=== PATIENT | male | born 1945 | race Caucasian/White ===

== ENCOUNTER 2018-04-11 08:40 | Outpatient (CLI) | payer MEDICARE, SELFPAY ==
[2018-04-11 11:33] LABS: Abs Immature Grans 0.02 k/cumm (0.0-0.09); Absolute Basophil Count 0.04 k/cumm (0.0-0.2); Absolute Eosinophil Count 0.24 k/cumm (0.0-0.7); Absolute Lymphocyte Count 0.81 k/cumm (1.2-3.4); Absolute Monocyte Count 1.02 k/cumm (0.11-0.7); Absolute Neutrophil Count 8.07 k/cumm (1.2-6.7); Basophils % 0.4; Eosinophils % 2.4; HCT 42.8 % (40.0-50.0); Immature Grans % 0.2; Lymphocytes % 7.9; Mean Corpuscular Hemoglobin 33.9 pg (27.0-33.0); Mean Corpuscular Volume 96.8 fL (80-95); Mean Platelet Volume 10.2 fL (8.0-11.0); Neutrophils % 79.1; Platelet Count 217 x1000/uL (130-400); RBC 4.42 m/cumm (4.50-6.00); RBC Distribution Width 12.6 % (11.8-14.1)
[2018-04-11 11:57] LABS: ALT 14 U/L (12-78); AST 18 U/L (15-37); Albumin 3.7 g/dL (3.4-5.0); Alkaline Phosphatase 84 U/L (46-116); BUN 16 mg/dL (7-18); Bilirubin, Total 1.2 mg/dL (0.2-1.0); CREATININE 0.95 mg/dL (0.70-1.30); Calcium 9.1 mg/dL (8.5-10.1); Chloride 102 mmol/L (98-107); Glucose 96 mg/dL (70-100); Potassium 3.8 mmol/L (3.5-5.1); Sodium 137 mmol/L (136-145); Total Protein 7.8 g/dL (6.4-8.2)
[2018-04-11 12:28] LABS: C-Reactive Protein 4.87 mg/dL (0.0-0.3)
[2018-04-13 12:39] LABS: Angiotensin Converting Enzyme 20 U/L (8 - 53)
== END 2018-04-11 09:00 ==
PROVIDERS: PCP Emergency Medicine; Visit Provider Emergency Medicine
DX: E66.9 Obesity, unspecified (principal); J18.9 Pneumonia, unspecified organism; R59.0 Localized enlarged lymph nodes; R05 Cough
CPT/HCPCS: 36415; 80053; 82164; 85025; 86140

== ENCOUNTER 2018-04-28 00:35 | Outpatient (CLI) | payer MEDICARE, SELFPAY ==
[2018-04-28] MEDS: Gadoterate meglumine 20 ML VIAL 14 ML IVP (14:59)
--- NOTE | 2018-04-28 15:16 | DI.MRI_ITS ---
SYMPTOM/DIAGNOSIS: CERVICAL ADENOPATHY, R59.0, RT UPPER LUNG NODULE, R91.1, EVALUATE FOR METASTATIC DISEASE BRAIN MRI: There are no prior comparison exams. T 2 sagittal, T 1, T 2, FLAIR, diffusion and gradient echo axial and post Gadolinium T 1 axial and coronal sequences were performed. The exam is mildly limited by patient motion. No intracranial hemorrhage, mass or infarct is seen. There are no abnormal enhancing lesions. There are patchy areas of high signal in the white matter consistent with sequela of micro vascular disease. The ventricles are normal in size. There is mild atrophy. The orbits and sinuses are unremarkable. Vascular flow voids appear intact. There is a small amount of fluid in the mastoid air cells bilaterally. IMPRESSION: Atrophy and white matter changes of small vessel disease. No evidence of metastatic disease.
== END 2018-04-28 00:55 ==
PROVIDERS: PCP Emergency Medicine; Visit Provider Thoracic Surgery (Cardiothoracic Vascular Surgery)
DX: R59.0 Localized enlarged lymph nodes (principal); R91.1 Solitary pulmonary nodule; R90.82 White matter disease, unspecified; G61.1 Serum neuropathy
CPT/HCPCS: 70553

== ENCOUNTER 2018-05-23 14:45 | Outpatient (CLI) | payer MEDICARE, SELFPAY ==
[2018-05-23 15:30] LABS: Abs Immature Grans 0.01 k/cumm (0.0-0.09); Absolute Basophil Count 0.01 k/cumm (0.0-0.2); Absolute Lymphocyte Count 0.25 k/cumm (1.2-3.4); Absolute Monocyte Count 0.43 k/cumm (0.11-0.7); Absolute Neutrophil Count 3.36 k/cumm (1.2-6.7); Basophils % 0.2; HCT 36.3 % (40.0-50.0); HGB 12.9 g/dL (13.5-17.5); Immature Grans % 0.2; Lymphocytes % 6.2; Mean Corp. HGB Concentration 35.5 g/dL (32.0-36.0); Mean Corpuscular Hemoglobin 33.5 pg (27.0-33.0); Mean Corpuscular Volume 94.3 fL (80-95); Monocytes % 10.6; Neutrophils % 82.8; RBC 3.85 m/cumm (4.50-6.00); RBC Distribution Width 11.7 % (11.8-14.1); White Blood Cell Count 4.06 k/cumm (4.4-10.8)
[2018-05-23 15:53] LABS: Platelet Count 66 x1000/uL (130-400)
[2018-05-23 15:54] LABS: Diff Comment PLT Morph Reviewed; RBC Morphology Normal
[2018-05-23 16:02] LABS: ALT 52 U/L (12-78); AST 51 U/L (15-37); Albumin 2.8 g/dL (3.4-5.0); Alkaline Phosphatase 159 U/L (46-116); Anion Gap 9.6 mmol/L (3-11); BUN 20 mg/dL (7-18); Bilirubin, Total 1.8 mg/dL (0.2-1.0); CO2 25.4 mmol/L (21.0-32.0); CREATININE 0.92 mg/dL (0.70-1.30); Calcium 8.3 mg/dL (8.5-10.1); Chloride 97 mmol/L (98-107); FREE T4 1.25 ng/dL (0.76-1.46); Glucose 108 mg/dL (70-100); Potassium 3.7 mmol/L (3.5-5.1); Sodium 132 mmol/L (136-145); TSH 3.49 uIU/mL (0.358-3.74); Total Protein 7.5 g/dL (6.4-8.2)
== END 2018-05-23 15:05 ==
PROVIDERS: PCP Emergency Medicine; Visit Provider Internal Medicine Hospice and Palliative Medicine
DX: C34.91 Malignant neoplasm of unspecified part of right bronchus or lung (principal); Z79.899 Other long term (current) drug therapy
CPT/HCPCS: 36415; 80053; 84439; 84443; 85025

== ENCOUNTER 2018-05-25 17:23 | Emergency (ER) | payer MEDICARE, SELFPAY ==
[2018-05-25 17:32] VITALS: BP 126/56; PULSE 86; RESP 20; TEMP 37; O2SAT 95
--- NOTE | 2018-05-25 17:51 | W.ED.GENAD ---
Discharge Plan Disposition Patient Disposition: HOME Condition: Improving Discharge Details Chief Complaint: Epistaxis Clinical Impression: Acute anterior epistaxis Primary Care Provider: Dakota Griffith ED Provider: Parth Muse Home Meds and New Rx's Prescriptions: New amoxicillin-pot clavulanate 875-125 mg tablet 1 tab PO BID 4 Days Qty: 8 RF: 0 Continued naproxen sodium [Aleve] 220 mg capsule 220 mg PO BID PRNRF: 0 ondansetron HCl 8 mg tablet 8 mg PO TID PRNRF: 0 dexamethasone 4 mg tablet 4 mg PO Q12H RF: 0 prochlorperazine maleate 10 mg tablet 10 mg PO QID RF: 0 folic acid 1 mg tablet 1 mg PO DAILY RF: 0 lorazepam 0.5 mg tablet 0.5 mg PO HS Qty: 60 RF: 3 PreviDent 5000 Dry Mouth 1.1 % gel 1 applic DT BID RF: 0 aspirin 81 MG tablet,delayed release (DR/EC) 81 mg PO DAILY RF: 0 cholecalciferol (vitamin D3) 1,000 UNIT capsule 1,000 unit PO DAILY RF: 0 vitamin D84-rbagy acid 1 EACH tablet 1 ea PO DAILY RF: 0 omeprazole 20 MG capsule,delayed release(DR/EC) 20 mg PO DAILY Qty: 90 RF: 4 morphine 5 mg/mL Solution 5 mg SUBCUT Q12H PRN RF: 0 Discharge Instructions Additional Instructions: We will place a referral to otolaryngology clinic to get you an appointment for removal of the nasal tampon. Please take antibiotics as prescribed. Please follow-up in the cancer center on Tuesday as planned. Please follow-up with Dr. Griffith tomorrow in clinic as planned. Continue all regular medications. Return to the emergency department for any acute concerns Medical Decision Making 72-year-old male referred by the cancer center after he developed left anterior epistaxis at home that was refractive to pressure and tissue. He is undergone 1 cycle of chemotherapy for metastatic adenocarcinoma of the right lung. Being treated with carboplatin, pemetrexel and keytruda. He most recent blood draw revealed platelets of 66. He has dry it would heat in his home and has a history of 1-2 nosebleeds typically, but they have been more frequent over the past few weeks. He states that he is otherwise been well. He has noted a dry cough which sometimes provokes the nosebleeds. Given the recently low platelets (66 @ 05/23/18) and his age as well as dry wood heat in the home, I elected to pack with a nasal tampon. Which the patient tolerated well. Labs today: wbc 2.9, hct 34.9, platelets 56. Case discussed with on-call Oncology at [facility] [place], Dr Borrero. She agrees with plan of care including prophylactic antibiotic and states that oncology would prefer to the nasal tampon be removed by otolaryngology. We will arrange a follow-up Lab Data Lab results reviewed: Yes I reviewed the patient's lab results. Laboratory Results - last 24 hr 05/25/18 05/25/18 17:57 17:57 WBC 2.98 L RBC 3.74 L Hgb 12.6 L Hct 34.9 L MCV 93.3 MCH 33.7 H MCHC 36.1 H RDW 11.7 L Plt Count 56 L MPV 10.4 Immature Gran % 0.3 Neutrophils % 62.8 Lymphocytes % 16.4 Monocytes % 20.5 Eosinophils % 0.0 Basophils % 0.0 Absolute Neutrophils 1.87 Absolute Lymphocytes 0.49 L Absolute Monocytes 0.61 Absolute Eosinophils 0.00 Absolute Basophils 0.00 Differential Comment Plt morph reviewed RBC Morphology Normal Sodium 135 L Potassium 3.8 Chloride 98 Carbon Dioxide 25.4 Anion Gap 11.6 H BUN 19 H Creatinine 0.89 Estimated GFR/1.73 m2 >= 60.00 Glucose 98 Calcium 8.4 L HPI General Mode of arrival: ambulatory. Date/Time Provider Initiated Documentation: 05/25/18 17:28. Limitations to Documentation: no limitations. Information obtained by: patient and family. History of Present Illness 72 year old M presents to the emergency department with the chief complaint of Left epistaxis, described as moderate, Quality is described as constant, and is localized to the face and left. Patient reports no radiation. Patient started experiencing this hour(s) and it has been constant. other things that improve symptom(s), (Pressure) No exacerbating factors reported . Patient notes no other symptoms.; denies chest pain, malaise, shortness of breath, syncope and weakness. Patient did receive the following treatments prior to arrival, other (Tissue to nostril) Related Data Home Medications Medication Instructions Recorded Confirmed aspirin 81 mg PO DAILY tab-cap 04/06/13 05/25/18 cholecalciferol (vitamin D3) 1,000 unit PO DAILY 04/06/13 05/25/18 vitamin P51-tdcgs acid 1 ea PO DAILY 06/30/17 05/12/18 omeprazole 20 mg PO DAILY #90 tab-cap 12/09/17 05/25/18 sodium fluoride 1.1 % dental gel 1 applic DT BID ml 04/11/18 05/12/18 naproxen sodium 220 mg capsule 220 mg PO BID PRN 05/05/18 05/12/18 dexamethasone 4 mg tablet 4 mg PO Q12H 05/12/18 05/25/18 folic acid 1 mg tablet 1 mg PO DAILY 05/12/18 05/25/18 lorazepam 0.5 mg tablet 0.5 mg PO HS #60 tab 05/12/18 05/12/18 ondansetron HCl 8 mg tablet 8 mg PO TID PRN 05/12/18 05/12/18 prochlorperazine maleate 10 mg 10 mg PO QID 05/12/18 05/12/18 tablet amoxicillin-pot clavulanate 1 tab PO BID 4 Days #8 tab 05/25/18 morphine 5 mg SUBCUT Q12H PRN 05/25/18 05/25/18 Previous Rx's Medication Instructions Recorded omeprazole 20 mg PO DAILY #90 tab-cap 12/09/17 lorazepam 0.5 mg tablet 0.5 mg PO HS #60 tab 05/12/18 amoxicillin-pot clavulanate 1 tab PO BID 4 Days #8 tab 05/25/18 Allergies Allergy/AdvReac Type Severity Reaction Status Date / Time No Known Allergies Allergy Verified 05/25/18 17:38 General Stated Complaint: Epistaxis BRENDA: 3 Review of Systems Review of Systems 8 systems reviewed and otherwise - [facility] Surgical History Colonoscopy - MAC EGD - MAC (03/09/11) Total replacement of hip Family History Mother Stroke Father Stroke Sister No problems noted. Brother No problems noted. Grandfather Heart disease Grandfather Stroke Grandmother Stroke Grandmother No problems noted. Brother No problems noted. Social History Smoking/Tobacco Use Status: Former Tobacco Use Exam Narrative Exam Narrative: GEN: awake, alert, oriented 3. Pleasant, well groomed, interactive. HEAD: Normocephalic, atraumatic ENT: Mucous membranes moist, oropharynx with dried blood on posterior pharynx. The left anterior naris is with oozing of blood EYES: PERRL, EOMI NECK: Full ROM, no FRANCIE, no menigismus CHEST/RESP: Nontender, clear to auscultation bilateral, no wheeze/rhonchi/rales CARDIOVASCULAR: RRR, no murmur, rub loly. 2+ Rad pulse bilateral ABDOMEN: Soft, nontender, no mass. +Bowel sounds EXT: Full ROM, no edema, no rash Neuro: Grossly normal neurologic exam, conversant, interactive. Psych: Speech fluent, thoughts congruent, affect normal Course Vital Signs Temperature 37.0 C 05/25/18 17:32 Pulse 86 05/25/18 17:32 Respiratory Rate 20 05/25/18 17:32 Blood Pressure 126/56 L 05/25/18 17:32 Pulse Oximetry 95 05/25/18 17:32 Temperature 37.0 C 05/25/18 17:32 Temperature Source Skin 05/25/18 17:32 Pulse 86 05/25/18 17:32 Respiratory Rate 20 05/25/18 17:32 Respiratory Effort 05/25/18 17:40 Blood Pressure 126/56 L 05/25/18 17:32 Pulse Oximetry 95 05/25/18 17:32 Oxygen Delivery Method Room Air 05/25/18 17:32 Oxygen Flow Rate 0 05/25/18 17:32 Pain Level 0 05/25/18 17:32 Procedures Epistaxis Control Time Out Performed: Yes Nostril: left Nose Prepped With: lidocaine Direct Inspection: yes Cautery Used: none Device Inserted: nasal tampon
--- NOTE | 2018-05-25 17:54 | ED.GENADUL_ITS ---
Discharge Plan Disposition Patient Disposition: HOME Condition: Improving Discharge Details Chief Complaint: Epistaxis Clinical Impression: Acute anterior epistaxis Primary Care Provider: Dakota Griffith ED Provider: Parth Muse Home Meds and New Rx's Prescriptions: New amoxicillin-pot clavulanate 875-125 mg tablet 1 tab PO BID 4 Days Qty: 8 RF: 0 Continued naproxen sodium [Aleve] 220 mg capsule 220 mg PO BID PRNRF: 0 ondansetron HCl 8 mg tablet 8 mg PO TID PRNRF: 0 dexamethasone 4 mg tablet 4 mg PO Q12H RF: 0 prochlorperazine maleate 10 mg tablet 10 mg PO QID RF: 0 folic acid 1 mg tablet 1 mg PO DAILY RF: 0 lorazepam 0.5 mg tablet 0.5 mg PO HS Qty: 60 RF: 3 PreviDent 5000 Dry Mouth 1.1 % gel 1 applic DT BID RF: 0 aspirin 81 MG tablet,delayed release (DR/EC) 81 mg PO DAILY RF: 0 cholecalciferol (vitamin D3) 1,000 UNIT capsule 1,000 unit PO DAILY RF: 0 vitamin T38-wwtdv acid 1 EACH tablet 1 ea PO DAILY RF: 0 omeprazole 20 MG capsule,delayed release(DR/EC) 20 mg PO DAILY Qty: 90 RF: 4 morphine 5 mg/mL Solution 5 mg SUBCUT Q12H PRN RF: 0 Discharge Instructions Additional Instructions: We will place a referral to otolaryngology clinic to get you an appointment for removal of the nasal tampon. Please take antibiotics as prescribed. Please follow-up in the cancer center on Tuesday as planned. Please follow-up with Dr. Griffith tomorrow in clinic as planned. Continue all regular medications. Return to the emergency department for any acute concerns Medical Decision Making 72-year-old male referred by the cancer center after he developed left anterior epistaxis at home that was refractive to pressure and tissue. He is undergone 1 cycle of chemotherapy for metastatic adenocarcinoma of the right lung. Being treated with carboplatin, pemetrexel and keytruda. He most recent blood draw revealed platelets of 66. He has dry it would heat in his home and has a history of 1-2 nosebleeds typically, but they have been more frequent over the past few weeks. He states that he is otherwise been well. He has noted a dry cough which sometimes provokes the nosebleeds. Given the recently low platelets (66 @ 05/23/18) and his age as well as dry wood heat in the home, I elected to pack with a nasal tampon. Which the patient tolerated well. Labs today: wbc 2.9, hct 34.9, platelets 56. Case discussed with on-call Oncology at [facility] [place], Dr Borrero. She agrees with plan of care including prophylactic antibiotic and states that oncology would prefer to the nasal tampon be removed by otolaryngology. We will arrange a follow-up Lab Data Lab results reviewed: Yes I reviewed the patient's lab results. Laboratory Results - last 24 hr 05/25/18 05/25/18 17:57 17:57 WBC 2.98 L RBC 3.74 L Hgb 12.6 L Hct 34.9 L MCV 93.3 MCH 33.7 H MCHC 36.1 H RDW 11.7 L Plt Count 56 L MPV 10.4 Immature Gran % 0.3 Neutrophils % 62.8 Lymphocytes % 16.4 Monocytes % 20.5 Eosinophils % 0.0 Basophils % 0.0 Absolute Neutrophils 1.87 Absolute Lymphocytes 0.49 L Absolute Monocytes 0.61 Absolute Eosinophils 0.00 Absolute Basophils 0.00 Differential Comment Plt morph reviewed RBC Morphology Normal Sodium 135 L Potassium 3.8 Chloride 98 Carbon Dioxide 25.4 Anion Gap 11.6 H BUN 19 H Creatinine 0.89 Estimated GFR/1.73 m2 >= 60.00 Glucose 98 Calcium 8.4 L HPI General Mode of arrival: ambulatory . Date/Time Provider Initiated Documentation: 05/25/18 17:28 . Limitations to Documentation: no limitations . Information obtained by: patient and family . History of Present Illness 72 year old M presents to the emergency department with the chief complaint of Left epistaxis, described as moderate, Quality is described as constant, and is localized to the face and left. Patient reports no radiation. Patient started experiencing this hour(s) and it has been constant. other things that improve symptom(s), (Pressure) No exacerbating factors reported . Patient notes no other symptoms.; denies chest pain, malaise, shortness of breath, syncope and weakness. Patient did receive the following treatments prior to arrival, other (Tissue to nostril) Related Data Home Medications Medication Instructions Recorded Confirmed aspirin 81 mg PO DAILY tab-cap 04/06/13 05/25/18 cholecalciferol (vitamin D3) 1,000 unit PO DAILY 04/06/13 05/25/18 vitamin X46-kwtgj acid 1 ea PO DAILY 06/30/17 05/12/18 omeprazole 20 mg PO DAILY #90 tab-cap 12/09/17 05/25/18 sodium fluoride 1.1 % dental gel 1 applic DT BID ml 04/11/18 05/12/18 naproxen sodium 220 mg capsule 220 mg PO BID PRN 05/05/18 05/12/18 dexamethasone 4 mg tablet 4 mg PO Q12H 05/12/18 05/25/18 folic acid 1 mg tablet 1 mg PO DAILY 05/12/18 05/25/18 lorazepam 0.5 mg tablet 0.5 mg PO HS #60 tab 05/12/18 05/12/18 ondansetron HCl 8 mg tablet 8 mg PO TID PRN 05/12/18 05/12/18 prochlorperazine maleate 10 mg 10 mg PO QID 05/12/18 05/12/18 tablet amoxicillin-pot clavulanate 1 tab PO BID 4 Days #8 tab 05/25/18 morphine 5 mg SUBCUT Q12H PRN 05/25/18 05/25/18 Previous Rx's Medication Instructions Recorded omeprazole 20 mg PO DAILY #90 tab-cap 12/09/17 lorazepam 0.5 mg tablet 0.5 mg PO HS #60 tab 05/12/18 amoxicillin-pot clavulanate 1 tab PO BID 4 Days #8 tab 05/25/18 Allergies Allergy/AdvReac Type Severity Reaction Status Date / Time No Known Allergies Allergy Verified 05/25/18 17:38 General Stated Complaint: Epistaxis BRENDA: 3 Review of Systems Review of Systems 8 systems reviewed and otherwise - [facility] Surgical History Colonoscopy - MAC EGD - MAC (03/09/11) Total replacement of hip Family History Mother Stroke Father Stroke Sister No problems noted. Brother No problems noted. Grandfather Heart disease Grandfather Stroke Grandmother Stroke Grandmother No problems noted. Brother No problems noted. Social History Smoking/Tobacco Use Status: Former Tobacco Use Exam Narrative Exam Narrative: GEN: awake, alert, oriented 3. Pleasant, well groomed, interactive. HEAD: Normocephalic, atraumatic ENT: Mucous membranes moist, oropharynx with dried blood on posterior pharynx. The left anterior naris is with oozing of blood EYES: PERRL, EOMI NECK: Full ROM, no FRANCIE, no menigismus CHEST/RESP: Nontender, clear to auscultation bilateral, no wheeze/rhonchi/rales CARDIOVASCULAR: RRR, no murmur, rub loly. 2+ Rad pulse bilateral ABDOMEN: Soft, nontender, no mass. +Bowel sounds EXT: Full ROM, no edema, no rash Neuro: Grossly normal neurologic exam, conversant, interactive. Psych: Speech fluent, thoughts congruent, affect normal Course Vital Signs Temperature 37.0 C 05/25/18 17:32 Pulse 86 05/25/18 17:32 Respiratory Rate 20 05/25/18 17:32 Blood Pressure 126/56 L 05/25/18 17:32 Pulse Oximetry 95 05/25/18 17:32 Temperature 37.0 C 05/25/18 17:32 Temperature Source Skin 05/25/18 17:32 Pulse 86 05/25/18 17:32 Respiratory Rate 20 05/25/18 17:32 Respiratory Effort 05/25/18 17:40 Blood Pressure 126/56 L 05/25/18 17:32 Pulse Oximetry 95 05/25/18 17:32 Oxygen Delivery Method Room Air 05/25/18 17:32 Oxygen Flow Rate 0 05/25/18 17:32 Pain Level 0 05/25/18 17:32 Procedures Epistaxis Control Time Out Performed: Yes Nostril: left Nose Prepped With: lidocaine Direct Inspection: yes Cautery Used: none Device Inserted: nasal tampon
[2018-05-25] MEDS: Normal Saline Flush 10 ML SYR IVP (18:03)
[2018-05-25 18:05] LABS: Abs Immature Grans 0.01 k/cumm (0.0-0.09); Absolute Lymphocyte Count 0.49 k/cumm (1.2-3.4); Absolute Monocyte Count 0.61 k/cumm (0.11-0.7); Absolute Neutrophil Count 1.87 k/cumm (1.2-6.7); HCT 34.9 % (40.0-50.0); HGB 12.6 g/dL (13.5-17.5); Immature Grans % 0.3; Lymphocytes % 16.4; Mean Corp. HGB Concentration 36.1 g/dL (32.0-36.0); Mean Corpuscular Hemoglobin 33.7 pg (27.0-33.0); Mean Corpuscular Volume 93.3 fL (80-95); Mean Platelet Volume 10.4 fL (8.0-11.0); Monocytes % 20.5; Neutrophils % 62.8; RBC 3.74 m/cumm (4.50-6.00); RBC Distribution Width 11.7 % (11.8-14.1); White Blood Cell Count 2.98 k/cumm (4.4-10.8)
[2018-05-25] MEDS: Benzonatate 100 MG CAP PO (18:08)
[2018-05-25 18:13] LABS: Anion Gap 11.6 mmol/L (3-11); BUN 19 mg/dL (7-18); CO2 25.4 mmol/L (21.0-32.0); CREATININE 0.89 mg/dL (0.70-1.30); Calcium 8.4 mg/dL (8.5-10.1); Chloride 98 mmol/L (98-107); Glucose 98 mg/dL (70-100); Potassium 3.8 mmol/L (3.5-5.1); Sodium 135 mmol/L (136-145)
[2018-05-25 18:16] LABS: Platelet Count 56 x1000/uL (130-400)
[2018-05-25 18:17] LABS: Diff Comment PLT Morph Reviewed; RBC Morphology Normal
[2018-05-25 18:24] LABS: INR 1.3 (0.9-1.1); Prothrombin Time 12.7 sec (9.3-11.0)
[2018-05-25 18:55] VITALS: BP 132/70; PULSE 76; RESP 16; TEMP 37.2; O2SAT 95
[2018-05-25] MEDS: Amoxicillin 875/Clav. 125 TAB PO ×2 (19:01)
[2018-05-25 19:06] VITALS: BP 132/70; PULSE 76; RESP 16; TEMP 37.2; O2SAT 95
--- NOTE | 2018-05-26 13:51 | PDOC.ERCMPRO ---
Care Management Progress Note 05/26-Dr. Muse requested assistance with an ENT appt on 05/29 or 05/30 to remove nasal tampon. Referral faxed to ENT this am.
== END 2018-05-25 19:08 | disposition home or self-care (01) ==
LOC: ER 19:01
PROVIDERS: Emergency Provider Emergency Medicine; PCP Emergency Medicine
DX: R04.0 Epistaxis (principal); C34.91 Malignant neoplasm of unspecified part of right bronchus or lung; Z79.899 Other long term (current) drug therapy
CPT/HCPCS: 30901; 36415; 80048; 99283; 85025; 85610; 99281

== ENCOUNTER 2018-05-29 08:50 | Outpatient (CLI) | payer MEDICARE, SELFPAY ==
[2018-05-29 09:16] LABS: Abs Immature Grans 0.02 k/cumm (0.0-0.09); Absolute Lymphocyte Count 0.22 k/cumm (1.2-3.4); Absolute Neutrophil Count 1.69 k/cumm (1.2-6.7); HCT 35.4 % (40.0-50.0); HGB 12.5 g/dL (13.5-17.5); Immature Grans % 0.8; Lymphocytes % 8.7; Mean Corp. HGB Concentration 35.3 g/dL (32.0-36.0); Mean Corpuscular Hemoglobin 33.6 pg (27.0-33.0); Mean Corpuscular Volume 95.2 fL (80-95); Mean Platelet Volume 9.5 fL (8.0-11.0); Monocytes % 23.7; Neutrophils % 66.8; RBC 3.72 m/cumm (4.50-6.00); RBC Distribution Width 12.1 % (11.8-14.1); White Blood Cell Count 2.53 k/cumm (4.4-10.8)
[2018-05-29 09:23] LABS: Platelet Count 102 x1000/uL (130-400)
[2018-05-29 09:35] LABS: ALT 74 U/L (12-78); AST 48 U/L (15-37); Albumin 2.9 g/dL (3.4-5.0); Alkaline Phosphatase 147 U/L (46-116); Anion Gap 9.8 mmol/L (3-11); BUN 17 mg/dL (7-18); CO2 25.2 mmol/L (21.0-32.0); CREATININE 0.94 mg/dL (0.70-1.30); Calcium 8.5 mg/dL (8.5-10.1); Chloride 98 mmol/L (98-107); Glucose 107 mg/dL (70-100); Potassium 3.8 mmol/L (3.5-5.1); Sodium 133 mmol/L (136-145); Total Protein 7.4 g/dL (6.4-8.2)
== END 2018-05-29 09:10 ==
PROVIDERS: Internal Medicine Hospice and Palliative Medicine; PCP Emergency Medicine; Visit Provider Nurse Practitioner Family
DX: C34.91 Malignant neoplasm of unspecified part of right bronchus or lung (principal)
CPT/HCPCS: 36415; 80053; 85025

== ENCOUNTER 2018-06-05 09:14 | Outpatient (CLI) | payer MEDICARE, SELFPAY ==
[2018-06-05 09:39] LABS: Abs Immature Grans 0.05 k/cumm (0.0-0.09); Absolute Basophil Count 0.02 k/cumm (0.0-0.2); Absolute Lymphocyte Count 0.73 k/cumm (1.2-3.4); Absolute Monocyte Count 1.68 k/cumm (0.11-0.7); Basophils % 0.2; HCT 34.8 % (40.0-50.0); HGB 12.3 g/dL (13.5-17.5); Immature Grans % 0.5; Lymphocytes % 7.6; Mean Corp. HGB Concentration 35.3 g/dL (32.0-36.0); Mean Corpuscular Hemoglobin 33.9 pg (27.0-33.0); Mean Corpuscular Volume 95.9 fL (80-95); Mean Platelet Volume 8.8 fL (8.0-11.0); Monocytes % 17.5; Neutrophils % 74.2; Platelet Count 193 x1000/uL (130-400); RBC 3.63 m/cumm (4.50-6.00); RBC Distribution Width 13.3 % (11.8-14.1); White Blood Cell Count 9.58 k/cumm (4.4-10.8)
[2018-06-05 09:57] LABS: Diff Comment Diff Reviewed; RBC Morphology Normal
[2018-06-05 10:00] LABS: ALT 73 U/L (12-78); AST 63 U/L (15-37); Albumin 2.6 g/dL (3.4-5.0); Alkaline Phosphatase 125 U/L (46-116); BUN 14 mg/dL (7-18); CREATININE 0.94 mg/dL (0.70-1.30); Calcium 8.5 mg/dL (8.5-10.1); Chloride 97 mmol/L (98-107); Glucose 117 mg/dL (70-100); Potassium 3.8 mmol/L (3.5-5.1); Sodium 132 mmol/L (136-145); TSH 4.76 uIU/mL (0.358-3.74); Total Protein 7.5 g/dL (6.4-8.2)
[2018-06-05 14:50] LABS: FREE T4 1.18 ng/dL (0.76-1.46); LDH 433 U/L (85-227)
== END 2018-06-05 09:34 ==
PROVIDERS: PCP Emergency Medicine; Visit Provider Nurse Practitioner Family
DX: E03.2 Hypothyroidism due to medicaments and other exogenous substances (principal); C34.91 Malignant neoplasm of unspecified part of right bronchus or lung
CPT/HCPCS: 36415; 80053; 83615; 84439; 84443; 85025

== ENCOUNTER 2018-06-12 12:26 | Outpatient (CLI) | payer MEDICARE, SELFPAY ==
[2018-06-12 13:00] LABS: Abs Immature Grans 0.03 k/cumm (0.0-0.09); Absolute Lymphocyte Count 0.46 k/cumm (1.2-3.4); Absolute Monocyte Count 0.43 k/cumm (0.11-0.7); Absolute Neutrophil Count 5.77 k/cumm (1.2-6.7); HCT 33.9 % (40.0-50.0); HGB 12.1 g/dL (13.5-17.5); Immature Grans % 0.4; Lymphocytes % 6.9; Mean Corp. HGB Concentration 35.7 g/dL (32.0-36.0); Mean Corpuscular Hemoglobin 33.5 pg (27.0-33.0); Mean Corpuscular Volume 93.9 fL (80-95); Mean Platelet Volume 9.5 fL (8.0-11.0); Monocytes % 6.4; Neutrophils % 86.3; RBC 3.61 m/cumm (4.50-6.00); RBC Distribution Width 13.2 % (11.8-14.1); White Blood Cell Count 6.69 k/cumm (4.4-10.8)
[2018-06-12 13:13] LABS: ALT 66 U/L (12-78); AST 51 U/L (15-37); Albumin 2.6 g/dL (3.4-5.0); Alkaline Phosphatase 135 U/L (46-116); Anion Gap 11.7 mmol/L (3-11); BUN 20 mg/dL (7-18); CO2 26.3 mmol/L (21.0-32.0); CREATININE 0.87 mg/dL (0.70-1.30); Calcium 8.2 mg/dL (8.5-10.1); Chloride 92 mmol/L (98-107); FREE T4 1.22 ng/dL (0.76-1.46); Glucose 137 mg/dL (70-100); LDH 410 U/L (85-227); Potassium 3.6 mmol/L (3.5-5.1); Sodium 130 mmol/L (136-145); TSH 4.28 uIU/mL (0.358-3.74); Total Protein 7.3 g/dL (6.4-8.2)
[2018-06-12 13:19] LABS: Diff Comment PLT Morph Reviewed; Platelet Count 62 x1000/uL (130-400); RBC Morphology Normal
== END 2018-06-12 12:46 ==
PROVIDERS: PCP Emergency Medicine; Visit Provider Nurse Practitioner Family
DX: C34.91 Malignant neoplasm of unspecified part of right bronchus or lung (principal); Z79.899 Other long term (current) drug therapy; E03.2 Hypothyroidism due to medicaments and other exogenous substances
CPT/HCPCS: 36415; 80053; 83615; 84439; 84443; 85025

== ENCOUNTER 2018-06-12 14:53 | Emergency (ER) | payer MEDICARE, SELFPAY ==
[2018-06-12 15:04] VITALS: BP 116/90; PULSE 90; RESP 20; TEMP 37.6; O2SAT 97
--- NOTE | 2018-06-12 15:34 | W.ED.GENAD ---
Discharge Plan Disposition Patient Disposition: HOME Condition: Stable Discharge Details Chief Complaint: Epistaxis Clinical Impression: Recurrent epistaxis Primary Care Provider: Dakota Griffith ED Provider: Chhaya Cool Home Meds and New Rx's Prescriptions: [place] Saline gel 1 applic TP Q1-4H PRN (Reason: dry nasal passages) Qty: 14.1 RF: 0 [place] Saline Gel spray,non-aerosol 1 spray NAOMI Q1-4H PRN (Reason: dry nasal passages) Qty: 22 RF: 0 Continued naproxen sodium [Aleve] 220 mg capsule 220 mg PO BID PRNRF: 0 ondansetron HCl 8 mg tablet 8 mg PO TID PRNRF: 0 dexamethasone 4 mg tablet 4 mg PO Q12H RF: 0 prochlorperazine maleate 10 mg tablet 10 mg PO QID RF: 0 folic acid 1 mg tablet 1 mg PO DAILY RF: 0 lorazepam 0.5 mg tablet 0.5 mg PO HS Qty: 60 RF: 3 PreviDent 5000 Dry Mouth 1.1 % gel 1 applic DT BID RF: 0 aspirin 81 MG tablet,delayed release (DR/EC) 81 mg PO DAILY RF: 0 cholecalciferol (vitamin D3) 1,000 UNIT capsule 1,000 unit PO DAILY RF: 0 vitamin H89-aclyz acid 1 EACH tablet 1 ea PO DAILY RF: 0 omeprazole 20 MG capsule,delayed release(DR/EC) 20 mg PO DAILY Qty: 90 RF: 4 morphine 5 mg/mL Solution 5 mg SUBCUT Q12H PRN RF: 0 Discharge Instructions Instructions: Nosebleed (ED) Additional Instructions: Please return immediately to the emergency department if you develop any new or worsening symptoms or if you become otherwise concerned. It is extremely important that you make an appointment to be seen in follow-up for this visit by your primary care doctor and also by Dr. Porras of [facility] as soon as possible. Referrals: Dakota Griffith DO [Primary Care Provider] - Earnest Porras DO [OSTEOPATHIC DOCTOR] - Discharge Data Discharge Date/Time-TO BE ENTERED AT DEPARTURE: 06/12/18 16:01 Medical Decision Making Ozzy Rashid is a 72 y/o man with history of lung cancer currently receiving chemotherapy presenting to the emergency department for advice on how to prevent recurrent nosebleeds, no current nosebleed or active complaint. On exam patient is chronically ill but acutely nontoxic appearing, there is dried bloody crusting to the left septum. Labs drawn earlier today show platelets 62, hemoglobin 12, consistent with results from earlier this month since receiving chemotherapy. Concern for recurrent epistaxis secondary to chemotherapy-induced from cytopenia, dry mucous membranes, wood heater at home. Exam/history not consistent with hemorrhage, other acute emergent life-threatening process. I had a lengthy discussion with the patient regarding home care, including using humidifier, ayr gel/spray frequently, and provided patient nose clips for further minor bleeding with instructions to return for any epistaxis not easily resolved with nasal clips. Rx for ayr. I had a lengthy discussion with the patient regarding return to emergency department cautions and importance of outpatient follow-up with ENT, PCP, and oncology. Patient verbalized understanding the plan and is amenable. HPI General Mode of arrival: ambulatory. Date/Time Provider Initiated Documentation: 06/12/18 15:04. Limitations to Documentation: no limitations. Information obtained by: patient, family, RN notes reviewed and old records reviewed. HPI Narrative: Ozzy Rashid is a 72 y/o man with history of lung cancer, currently receiving chemotherapy presenting to the emergency department with recurrent epistaxis. Patient reports that he receives chemotherapy every 3 weeks, with last dose 1 week ago. Patient reports that since starting chemotherapy, he has had low platelets, and the inside of his nose seemed very dry. He has been having recurrent nosebleeds, and reports that he was seen here on 05/25 and had packing placed for nosebleed. He then had packing removed as an outpatient by ENT, and cautery was performed at the time packing was removed. Patient reports that since then he has had several small nosebleeds at home that he has not sought care for. Patient reports that last nosebleed was yesterday. Patient reports that it is difficult for him to leave his home due to overall weakness from the chemotherapy, and as he was already out at his oncology appointment earlier today he thought he would come to the emergency department for recommendations to prevent further nosebleeds. Patient had labs drawn today for oncology visit showing hemoglobin 12 and platelets 62. Patient had similar lab values earlier in the month. Patient reports that he has been eating and drinking relatively well. He reports that his generalized weakness is mild and manageable. He is not having any new pain. No fevers no vomiting/diarrhea, no shortness of breath, no cough, no focal weakness, no rash, no melena/hematochezia, no hematuria, no other bleeding. Related Data Home Medications Medication Instructions Recorded Confirmed aspirin 81 mg PO DAILY tab-cap 04/06/13 06/12/18 cholecalciferol (vitamin D3) 1,000 unit PO DAILY 04/06/13 06/12/18 vitamin Z52-depgi acid 1 ea PO DAILY 06/30/17 06/12/18 omeprazole 20 mg PO DAILY #90 tab-cap 12/09/17 06/12/18 sodium fluoride 1.1 % dental gel 1 applic DT BID ml 04/11/18 06/12/18 naproxen sodium 220 mg capsule 220 mg PO BID PRN 05/05/18 06/12/18 dexamethasone 4 mg tablet 4 mg PO Q12H 05/12/18 06/12/18 folic acid 1 mg tablet 1 mg PO DAILY 05/12/18 06/12/18 lorazepam 0.5 mg tablet 0.5 mg PO HS #60 tab 05/12/18 06/12/18 ondansetron HCl 8 mg tablet 8 mg PO TID PRN 05/12/18 06/12/18 prochlorperazine maleate 10 mg 10 mg PO QID 05/12/18 06/12/18 tablet morphine 5 mg SUBCUT Q12H PRN 05/25/18 06/12/18 sodium chloride-aloe vera [[place] 1 spray NAOMI Q1-4H PRN #22 ml 06/12/18 Saline Gel] sodium chloride-aloe vera [[place] 1 applic TP Q1-4H PRN #14.1 gm 06/12/18 Saline] Previous Rx's Medication Instructions Recorded omeprazole 20 mg PO DAILY #90 tab-cap 12/09/17 lorazepam 0.5 mg tablet 0.5 mg PO HS #60 tab 05/12/18 sodium chloride-aloe vera [[place] 1 spray NAOMI Q1-4H PRN #22 ml 06/12/18 Saline Gel] sodium chloride-aloe vera [[place] 1 applic TP Q1-4H PRN #14.1 gm 06/12/18 Saline] Allergies Allergy/AdvReac Type Severity Reaction Status Date / Time No Known Allergies Allergy Verified 06/12/18 15:11 General Stated Complaint: Epistaxis BRENDA: 3 Review of Systems Review of Systems Constitutional: denies fevers Eyes: denies eye pain ENT: denies facial pain, dental pain, sore throat, reports recurrent nosebleeds, dry nasal passages Cardiovascular: denies chest pain, edema Respiratory: denies SOB, cough GI: denies abdominal pain, vomiting, diarrhea, melena, hematochezia : denies flank pain, hematuria MSK: denies back pain, neck pain, arthralgias, myalgias Skin: denies rash Neuro: denies headaches, numbness, weakness [facility] Social History Smoking/Tobacco Use Status: Former Tobacco Use Exam Narrative Exam Narrative: Constitutional: Chronically ill but acutely [id number], pleasant, conversing normally HENT: head atraumatic, normocephalic normal inspection, mucous membranes moist, dried bloody crusting to the left septum, no active bleeding from the nose or mouth, no intraoral lesion Eyes: conjunctiva normal, sclera normal, pupils 3mm b/l Neck: no stridor, normal ROM, trachea midline Resp: normal work of breathing, LCTAB Cardio: normal rate, normal rhythm, no murmur appreciated Skin: warm, dry, normal color, no rash Neuro: alert, not altered, grossly non-focal, normal tone Psych: normal mood, normal affect, normal behavior Course Vital Signs Temperature 37.6 C H 06/12/18 15:04 Pulse 90 06/12/18 15:04 Respiratory Rate 20 06/12/18 15:04 Blood Pressure 116/90 06/12/18 15:04 Pulse Oximetry 97 06/12/18 15:04 Temperature 37.6 C H 06/12/18 15:04 Temperature Source Skin 06/12/18 15:04 Pulse 90 06/12/18 15:04 Respiratory Rate 20 06/12/18 15:04 Blood Pressure 116/90 06/12/18 15:04 Pulse Oximetry 97 06/12/18 15:04 Oxygen Delivery Method Room Air 06/12/18 15:04 Oxygen Flow Rate 0 06/12/18 15:04 Pain Level 0 06/12/18 15:04
[2018-06-12 15:57] VITALS: BP 116/90; PULSE 90; RESP 20; TEMP 37.6; O2SAT 97
== END 2018-06-12 16:01 | disposition home or self-care (01) ==
PROVIDERS: Emergency Provider Student in an Organized Health Care Education/Training Program; PCP Emergency Medicine
DX: R04.0 Epistaxis (principal); C34.91 Malignant neoplasm of unspecified part of right bronchus or lung; Z92.21 Personal history of antineoplastic chemotherapy
CPT/HCPCS: 36415; 80053; 99283; 83615; 84439; 84443; 85025

== ENCOUNTER 2018-07-05 21:34 | Emergency (ER) | payer MEDICARE, SELFPAY ==
[2018-07-05 21:36] VITALS: BP 125/57; PULSE 102; RESP 18; TEMP 37; O2SAT 96
[2018-07-05 23:14] LABS: Abs Immature Grans 0.23 k/cumm (0.0-0.09); HCT 30.1 % (40.0-50.0); HGB 10.6 g/dL (13.5-17.5); Mean Corp. HGB Concentration 35.2 g/dL (32.0-36.0); Mean Corpuscular Hemoglobin 35.1 pg (27.0-33.0); Mean Corpuscular Volume 99.7 fL (80-95); Mean Platelet Volume 8.6 fL (8.0-11.0); Platelet Count 163 x1000/uL (130-400); RBC 3.02 m/cumm (4.50-6.00); RBC Distribution Width 17.5 % (11.8-14.1); White Blood Cell Count 17.05 k/cumm (4.4-10.8)
[2018-07-05 23:34] LABS: Absolute Lymphocyte Count 0.85 k/cumm (1.2-3.4); Absolute Monocyte Count 2.05 k/cumm (0.11-0.7); Absolute Neutrophil Count 14.15 k/cumm (1.2-6.7)
[2018-07-05 23:35] LABS: Diff Comment Manual Differential; RBC Morphology Normal
[2018-07-05 23:38] LABS: ALT 41 U/L (12-78); AST 40 U/L (15-37); Albumin 2.3 g/dL (3.4-5.0); Alkaline Phosphatase 172 U/L (46-116); Anion Gap 9.5 mmol/L (3-11); BUN 14 mg/dL (7-18); Bilirubin, Total 1.2 mg/dL (0.2-1.0); CO2 27.5 mmol/L (21.0-32.0); CREATININE 0.85 mg/dL (0.70-1.30); Calcium 8.2 mg/dL (8.5-10.1); Chloride 94 mmol/L (98-107); Glucose 109 mg/dL (70-100); Potassium 3.9 mmol/L (3.5-5.1); Sodium 131 mmol/L (136-145); Total Protein 7.2 g/dL (6.4-8.2)
--- NOTE | 2018-07-05 23:46 | W.ED.GENAD ---
Discharge Plan Disposition Patient Disposition: HOME Condition: Stable Discharge Details Chief Complaint: Vascular Clinical Impression: Cellulitis of neck, Secondary malignant neoplasm of unspecified lung Reason For Visit: VENANCIO Primary Care Provider: Dakota Griffith ED Provider: Abelardo Cardona [facility]chu and Sharath Rx's Prescriptions: New doxycycline hyclate 100 mg capsule 100 mg PO BID Qty: 14 RF: 0 Continued naproxen sodium [Aleve] 220 mg capsule 220 mg PO BID PRNRF: 0 ondansetron HCl 8 mg tablet 8 mg PO TID PRNRF: 0 dexamethasone 4 mg tablet 4 mg PO Q12H RF: 0 prochlorperazine maleate 10 mg tablet 10 mg PO QID RF: 0 folic acid 1 mg tablet 1 mg PO DAILY RF: 0 lorazepam 0.5 mg tablet 0.5 mg PO HS Qty: 60 RF: 3 PreviDent 5000 Dry Mouth 1.1 % gel 1 applic DT BID RF: 0 lorazepam 1 mg tablet 1 - 2 mg PO QHS PRN (Reason: sleep) Qty: 60 RF: 0 aspirin 81 MG tablet,delayed release (DR/EC) 81 mg PO DAILY RF: 0 cholecalciferol (vitamin D3) 1,000 UNIT capsule 1,000 unit PO DAILY RF: 0 vitamin X97-axkce acid 1 EACH tablet 1 ea PO DAILY RF: 0 omeprazole 20 MG capsule,delayed release(DR/EC) 20 mg PO DAILY Qty: 90 RF: 4 morphine concentrate 20 mg/mL syringe 5 mg SL Q4H PRNRF: 0 [place] Saline gel 1 applic TP Q1-4H PRN (Reason: dry nasal passages) Qty: 14.1 RF: 0 [place] Saline Gel spray,non-aerosol 1 spray NAOMI Q1-4H PRN (Reason: dry nasal passages) Qty: 22 RF: 0 morphine 5 mg/mL Solution 5 mg SUBCUT Q12H PRN RF: 0 No Action prednisone 20 mg tablet 20 mg PO DAILY Qty: 60 RF: 1 Discharge Instructions Instructions: Cellulitis (ED) Additional Instructions: Take your antibiotic as prescribed and follow-up with your primary care provider in the next 1-2 days. Feel free to return to the emergency department as needed for reassessment or any further concerns Referrals: Dakota Griffith DO [Primary Care Provider] - 2 days Discharge Data Discharge Date/Time-TO BE ENTERED AT DEPARTURE: 07/06/18 08:04 Medical Decision Making <Robert Pretty NP - Last Filed: 07/07/18 18:41> Patient presenting to emergency department for chief complaint of drainage from lymph node on right side of neck. Patient states that home health sent him here due to concern for worsening of symptoms. Patient denies any fever chills, change in breathing, respirations. 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 Physical exam shows weeping wound from right side of neck with significant erythema streaking down into chest wall. Drainage appears serosanguineous without odor. There is concern for possible infection. Given the patient is a hospice patient I did discuss risk versus benefit of labs and CT imaging versus empiric antibiotic treatment. Patient states that he would like to have scans and imaging performed to look at the extent of involvement and if any surgical interventions would be required at this time. Review of labs show a significant leukocytosis with bands present and shift, otherwise nondiagnostic labs. Review of CT imaging and radiologist interpretation shows bulky lymphadenopathy, soft tissue edema, no evidence of abscess or soft tissue gas. I am concerned for secondary cellulitis due to open lymph node. Given this patient was given a dose of IV doxycycline but of notation is that does state that since biopsy 2 months ago this area has been reddened. Concern for cellulitis versus worsening draining metastasis but given that this is the first time this is drained I do feel that treatment antibiotics is warranted. There are no beds available at our facility and patient was informed due to concern of moderate cellulitis that I would recommend admission but at this time he does not want to be transferred to any other facility. Given this patient was sent home with prescription for continue doxycycline and wound and blood cultures were obtained. Patient was encouraged that he may return to emergency department at any point otherwise he was placed on care management list for follow-up appointment and diagnosis of cellulitis. After discussion of diagnosis and plan of care patient is no further needs, questions, or concerns and states clear understanding to return to the emergency department for any worsening symptoms. Given that patient has metastatic cancer, open wound and infection, and unsteady gait with stating that she is unable to safely transport patient we did attempt to arrange ambulance transport for patient to return home. Due to adverse weather patient was unable to be transferred at time of discharge and was signed out to Dr. Cardona pending transfer. HPI <Robert Pretty NP - Last Filed: 07/07/18 18:41> General Mode of arrival: EMS. Date/Time Provider Initiated Documentation: 07/05/18 21:43. Limitations to Documentation: no limitations. Information obtained by: patient and RN notes reviewed. History of Present Illness 72 year old M presents to the emergency department with the chief complaint of right neck wound, Quality is described as other (denies pain), and is localized to the neck and right. Related Data Home Medications Medication Instructions Recorded Confirmed aspirin 81 mg PO DAILY tab-cap 04/06/13 06/12/18 cholecalciferol (vitamin D3) 1,000 unit PO DAILY 04/06/13 06/12/18 vitamin D77-sewoa acid 1 ea PO DAILY 06/30/17 06/12/18 omeprazole 20 mg PO DAILY #90 tab-cap 12/09/17 06/12/18 sodium fluoride 1.1 % dental gel 1 applic DT BID ml 04/11/18 06/12/18 naproxen sodium 220 mg capsule 220 mg PO BID PRN 05/05/18 06/12/18 dexamethasone 4 mg tablet 4 mg PO Q12H 05/12/18 06/12/18 folic acid 1 mg tablet 1 mg PO DAILY 05/12/18 06/12/18 lorazepam 0.5 mg tablet 0.5 mg PO HS #60 tab 05/12/18 06/12/18 ondansetron HCl 8 mg tablet 8 mg PO TID PRN 05/12/18 06/12/18 prochlorperazine maleate 10 mg 10 mg PO QID 05/12/18 06/12/18 tablet morphine 5 mg SUBCUT Q12H PRN 05/25/18 06/12/18 [place] Saline 1 applic TP Q1-4H PRN #14.1 gm 06/12/18 [place] Sal[place] Gel 1 spray NAOMI Q1-4H PRN #22 ml 06/12/18 lorazepam 1 mg tablet 1 - 2 mg PO QHS PRN #60 tab 06/29/18 06/29/18 morphine concentrate 20 mg/mL oral 5 mg SL Q4H PRN each 06/30/18 syringe (FOR ORAL USE ONLY) doxycycline hyclate 100 mg PO BID #14 cap 02/21/19 prednisone 20 mg tablet 20 mg PO DAILY #60 tab 07/07/18 07/07/18 Previous Rx's Medication Instructions Recorded omeprazole 20 mg PO DAILY #90 tab-cap 12/09/17 lorazepam 0.5 mg tablet 0.5 mg PO HS #60 tab 05/12/18 [place] Saline 1 applic TP Q1-4H PRN #14.1 gm 06/12/18 [place] Sal[place] Gel 1 spray NAOMI Q1-4H PRN #22 ml 06/12/18 lorazepam 1 mg tablet 1 - 2 mg PO QHS PRN #60 tab 06/29/18 doxycycline hyclate 100 mg PO BID #14 cap 07/06/18 prednisone 20 mg tablet 20 mg PO DAILY #60 tab 07/07/18 Allergies Allergy/AdvReac Type Severity Reaction Status Date / Time No Known Allergies Allergy Verified 06/12/18 15:11 General Stated Complaint: Vascular BRENDA: 4 Review of Systems <Robert Pretty NP - Last Filed: 07/07/18 18:41> Constitutional Denies chills and Denies fever(s) ENT Reports as per HPI and Reports neck mass Cardiovascular Denies chest pain Integumentary/Breasts Reports as per HPI, Reports bleeding lesions, Denies new lesions and Reports erythema PFSH <Robert Pretty NP - Last Filed: 07/07/18 18:41> Surgical History Colonoscopy - MAC EGD - MAC (03/09/11) Total replacement of hip Family History Mother Stroke Father Stroke Sister No problems noted. Brother No problems noted. Grandfather Heart disease Grandfather Stroke Grandmother Stroke Grandmother No problems noted. Brother No problems noted. Social History Smoking and Tabacco status: Former Tobacco Use Exam <Robert Pretty NP - Last Filed: 07/07/18 18:41> Const General: cooperative, comfortable and no acute distress Orientation: alert, awake and oriented x3 HENMT Head: normal to inspection, normocephalic and atraumatic Ears: hearing grossly normal bilaterally Neck Neck: no meningeal signs, trachea midline, supple, no anterior neck swelling, lymphadenopathy (Cervical), nontender and other (Significant swelling to right lateral neck with serosanguineous drainage) Chest Chest: abnormal inspection of the chest erythema (Right anterior superior chest wall and neck) Resp Effort & Inspection: normal respiratory effort and able to speak in complete sentences Cardio Rate: regular rate and not tachycardic Rhythm: regular rhythm Course <Robert Pretty NP - Last Filed: 07/07/18 18:41> Vital Signs Temperature 37.0 C 07/05/18 21:36 Pulse 102 H 07/05/18 21:36 Respiratory Rate 18 07/05/18 21:36 Blood Pressure 125/57 L 07/05/18 21:36 Pulse Oximetry 96 07/05/18 21:36 Temperature 37.0 C 07/05/18 21:36 Temperature Source Temporal Artery Scan 07/05/18 21:36 Pulse 102 H 07/05/18 21:36 Respiratory Rate 18 07/05/18 21:36 Blood Pressure 125/57 L 07/05/18 21:36 Pulse Oximetry 96 07/05/18 21:36 Oxygen Delivery Method Room Air 07/05/18 21:36 Oxygen Flow Rate 0 07/05/18 21:36 Lab/Test Results Lab/Test Results: 07/05/18 23:28 Blood Blood Culture - Pending 07/05/18 23:00 Neck - Right Wound Culture - Pending 07/05/18 23:00 Neck - Right Gram Stain - Pending 07/05/18 23:00 Blood Blood Culture - Pending Laboratory Tests Range/Units 07/05/18 07/05/18 23:00 23:00 WBC (4.4-10.8) k/cumm 17.05 H RBC (4.50-6.00) m/cumm 3.02 L Hgb (13.5-17.5) g/dL 10.6 L Hct (40.0-50.0) % 30.1 L MCV (80-95) fL 99.7 H MCH (27.0-33.0) pg 35.1 H MCHC (32.0-36.0) g/dL 35.2 RDW (11.8-14.1) % 17.5 H Plt Count (130-400) x1000/uL 163 D MPV (8.0-11.0) fL 8.6 Immature Gran % 0.0 Neutrophils % 82.0 Band Neutrophils % % 1.0 Lymphocytes % 5.0 Monocytes % 12.0 Eosinophils % 0.0 Basophils % 0.0 Absolute Neutrophils (1.2-6.7) k/cumm 14.15 H Absolute Lymphocytes (1.2-3.4) k/cumm 0.85 L Absolute Monocytes (0.11-0.7) k/cumm 2.05 H Absolute Eosinophils (0.0-0.7) k/cumm 0.00 Absolute Basophils (0.0-0.2) k/cumm 0.00 Differential Comment Manual differential RBC Morphology Normal Sodium (136-145) mmol/L 131 L Potassium (3.5-5.1) mmol/L 3.9 Chloride (98-107) mmol/L 94 L Carbon Dioxide (21.0-32.0) mmol/L 27.5 Anion Gap (3-11) mmol/L 9.5 BUN (7-18) mg/dL 14 Creatinine (0.70-1.30) mg/dL 0.85 Estimated GFR/1.73 m2 (mL/min/1.73m2) >= 60.00 Glucose (70-100) mg/dL 109 H Calcium (8.5-10.1) mg/dL 8.2 L Total Bilirubin (0.2-1.0) mg/dL 1.2 H AST (15-37) U/L 40 H ALT (12-78) U/L 41 Alkaline Phosphatase (46-116) U/L 172 H Total Protein (6.4-8.2) g/dL 7.2 Albumin (3.4-5.0) g/dL 2.3 L Sign Out <Robert Pretty NP - Last Filed: 07/07/18 18:41> Sign Out Data: Sign Out Comment: Patient signed out pending availability of transport home for concern of cellulitis secondary to malignant cancerous lesion to right side of neck. Patient is stable and does not want to be transferred to any other facility and her bed status shows no available beds for further admission. Last updated by Robert Pretty NP at 07/06/18 01:23 Post-Handoff Eval: Patient had been discharged but had to wait for ambulance availability to take him home. He has had no issues here while waiting. Ambulance will be returning him home this morning.
--- NOTE | 2018-07-05 23:59 | DI.CT_ITS ---
SYMPTOMS/DIAGNOSIS: RT NECK ? ABSCESS VS DRAINING LYMPH NODE SECONDARY TO CA CT SCAN OF THE NECK: CT scan of the neck was performed following the uneventful administration of intravenous contrast material. There are no priors for comparison. There is age related cerebral atrophy in the visualized portions of the brain. The orbits and retro-orbital soft tissues are unremarkable. The visualized paranasal sinuses are clear. The mastoid air cells are mildly opacified bilaterally, right greater than left. The nasopharynx, oropharynx, hypopharynx and larynx are unremarkable. There is extensive bilateral cervical adenopathy, right greater than left. The largest lymph node is seen at the level of the thyroid cartilage and measures 4.8 cm by 5.3 cm. The adenopathy is predominantly on the right. It does cause leftward deviation of the airway. There is bulky adenopathy seen in the mediastinum. The largest lymph node is seen in the right peritracheal region and measures 4.2 cm by 4.3 cm. There do appear to be mild emphysematous changes in the lung apices. Moderate degenerative changes are present throughout the cervical spine. The thyroid gland appears grossly unremarkable. There is mild edema seen in the soft tissues. IMPRESSION: 1. Bulky cervical adenopathy particularly in the right neck with adenopathy measuring up to 5 cm. 2. No evidence of an abscess or subcutaneous gas.
[2018-07-06] MEDS: DOXYCYCLINE 100 MG in Normal Saline 100 ML IVPB (00:28)
[2018-07-06 00:32] VITALS: BP 121/56; PULSE 130; RESP 18; TEMP 37.1; O2SAT 96
[2018-07-06] MEDS: Omnipaque 350 MG/ML 100 ML BTL IJ (00:32)
--- NOTE | 2018-07-06 00:37 | DI.VRAD_ITS ---
EXAM: CT Neck With Contrast EXAM DATE/TIME: 07/05/2018 10:37 PM CLINICAL HISTORY: 72 years old, male; Signs and symptoms; Mass, lump, or swelling in neck; Additional info: Right neck swelling. Abscess vs. Draining lymph node secondary to CA. Drainage [id number], HX stage 4 lung CA, chemo and radiation currently suspended TECHNIQUE: Axial computed tomography images of the neck with intravenous contrast. All CT scans at this facility use at least one of these dose optimization techniques: automated exposure control; mA and/or kV adjustment per patient size (includes targeted exams where dose is matched to clinical indication); or iterative reconstruction. Coronal and sagittal reformatted images were created and reviewed. CONTRAST: Contrast Material: 100 ml of [id number]; Contrast Route: iv COMPARISON: No relevant prior studies available. FINDINGS: Oropharynx: Normal. No significant tonsillar enlargement. Larynx: Normal. Normal epiglottis. Submandibular/Parotid glands: Normal. Glands are normal in size. Thyroid: Normal. No enlarged or calcified nodules. Lymph nodes: Bulky mediastinal lymphadenopathy with paratracheal lymph nodes measuring up to 5 cm in diameter. Bulky cervical chain lymphadenopathy with the largest node on the right measuring up to 5 cm in diameter. Vasculature: No acute findings. Bones/joints: Normal. No acute fracture. Soft tissues: Soft tissue edema right side of the neck. No evidence of soft tissue gas. IMPRESSION: Bulky lymphadenopathy. Soft tissue edema. No evidence of abscess or soft tissue gas. Dictated and Authenticated by: Reza Heller MD. Ordering:YAN Jones MD
--- NOTE | 2018-07-06 01:32 | NUR.NOTE ---
Nursing Note: resting in bed, IV abx infused without problem. ambulance unable to transport back to resident, plan for patient to spend the night in ED.
--- NOTE | 2018-07-06 02:19 | NUR.NOTE ---
Nursing Note:pt given warm blankets, call light in reach. no further needs. urinal at bedside. will continue to monitor.
[2018-07-06 03:30] VITALS: PULSE 104; RESP 20
--- NOTE | 2018-07-06 06:08 | NUR.NOTE ---
Nursing Note: Plan to be brought home via ambulance this am around 7ish. Pt aware, oob with walker to bathroom multiple times. will continue to monitor.
[2018-07-06 06:31] VITALS: BP 111/55; PULSE 91; RESP 18; TEMP 36.8; O2SAT 96
== END 2018-07-06 08:04 | disposition home or self-care (01) ==
PROVIDERS: Nurse Practitioner Family; Emergency Provider Emergency Medicine; PCP Emergency Medicine
DX: L03.221 Cellulitis of neck (principal); R59.0 Localized enlarged lymph nodes; C34.91 Malignant neoplasm of unspecified part of right bronchus or lung
CPT/HCPCS: 36415; 70491; 80053; 87040; 96365; 99285; 85025; 87070; 87205; 99284; J3490

== ENCOUNTER 2018-07-09 12:13 | Outpatient (REF) | payer MEDICARE, SELFPAY ==
[2018-07-09 13:22] LABS: Bilirubin Negative (Negative); Blood Negative (Negative); Clarity Clear; Glucose Negative (Negative); Ketones Negative (Negative); Leukocyte Esterase Negative (Negative); Nitrite Negative (Negative); Specific Gravity 1.015 (1.005-1.025); Urobilinogen 0.2 EU/dL (Up TO 0.2); pH 7.5 (5-8)
== END 2018-07-09 12:33 ==
LOC: LBN 12:13
PROVIDERS: PCP Emergency Medicine; Visit Provider Student in an Organized Health Care Education/Training Program
DX: N39.0 Urinary tract infection, site not specified (principal)
CPT/HCPCS: 81003; 87086